=== PATIENT | female | born 1990 | race Caucasian/White ===

== ENCOUNTER → 2017-05-10 | Outpatient (CLI) | payer BC, OTHER ==
[2017-05-13 01:39] LABS: CHLAMYDIA TRACH RNA*** NOT DETECTED (NOT DETECTED); GC (NEIS GONORRHOEAE)RNA** NOT DETECTED (NOT DETECTED)
== END | disposition home or self-care (01) ==
LOC: C.LABSPEC 16:33
PROVIDERS: ATTEND Obstetrics & Gynecology
DX: Z01.419 Encounter for gynecological examination (general) (routine) without abnormal findings (principal)

== ENCOUNTER → 2018-03-20 | Outpatient (CLI) | payer OTHER | END | disposition home or self-care (01) | LOC: C.LABSPEC 11:20 | PROVIDERS: ATTEND Obstetrics & Gynecology | DX: N76.0 Acute vaginitis (principal) ==

== ENCOUNTER 2024-11-06 07:49 | Inpatient (IN) ==
[2024-11-06] MEDS ORDERED: OXYTOCIN 30 UNITS/NSS 30 UNITS/500 ML BAG IV PRN ×2 (08:07→23:51)
[2024-11-06] MEDS ORDERED: LIDOCAINE 1% LOCAL 20 ML VIAL INFIL PRN (08:07)
--- NOTE | 2024-11-06 08:44 | History & Physical Report ---
Date of Service November 06, 2024 Assessment & Plan (1) IUGR (intrauterine growth restriction) affecting care of mother: Plan: Shawna is a 33-year-old currently at 39 weeks 0 days gestational age presents for induction of labor for IUGR 1. Fetus: Category 1 tracing 2. Labor: Status post Rodriguez. Will start oxytocin per regular protocol. will rupture when appropriate 3. GBS negative 4. GDM diet controlled 5. Vitals within normal limit (2) Gestational diabetes mellitus (GDM) affecting , antepartum: (3) Encounter for supervision of normal intrauterine in primigravida, antepartum: (4) Encounter for induction of labor: Admission and Anticipated Discharge Date Admission Date: November 06, 2024 History of Present Illness Primary Care Provider: Mesha Wood DO Shawna is a 33-year-old Shawna is a 33-year-old G1, P0 currently at 39 weeks 0 days gestational age presents for induction of labor for IUGR. complicated by: GDM w/16wk glucola *Begin monthly Growth US's @24wks IUGR *Twice weekly NST/DVP@Dx *Weekly doppler@Dx *Growth US Q4wk @Dx *Deliver [id number] (unless abnml flow) IOL 11/06/24 wants to wait as long as testing is o. *Deliver 37wks (less than 3rd%) OB Labs: Blood Type O Positive 04/03/24 Antibody Screen NEGATIVE 04/03/24 Hgb 12.2 g/dl (12.0-16.0) 08/21/24 Hct 35.4 % (37.0-47.0) L 08/21/24 MCV 84.0 fL (80.0-100.0) 04/03/24 Plt Count 251 K/uL (130-400) 04/03/24 Rubella IgG Antibody Immune (Immune) 04/03/24 RPR Nonreactive (Nonreactive) 04/03/24 Treponema pallidum Ab Negative (Negative) 08/21/24 Hep Bs Antigen NON-REACTIVE (NON-REACTIVE) 04/03/24 Hepatitis C Ab (EIA) NON-REACTIVE (NON-REACTIVE) 04/03/24 HIV (1&2) Ag & Ab Conf NON-REACTIVE (NON-REACTIVE) 04/03/24 Glucose 1 Hr 50 gm 145 mg/dl (70-130) H 05/29/24 Maternal Serum AFP 30.3 ng/mL 05/29/24 OB Optional Labs: Chlamydia trachomatis RNA Not Detected (NotDetected) 04/03/24 Neisseria gonorrhoeae RNA Not Detected (NotDetected) 04/03/24 Alpha Fetoprotein Triple Screen SEE NOTE 05/29/24 Labs Reviewed: Horizon 14-negative--mln cfdna-low risk--mln msafp neg, smp Allergies Allergy/AdvReac Type Severity Reaction Status Date / Time Sulfa (Sulfonamide Allergy Severe Anaphylaxis Verified 11/06/24 08:57 Antibiotics) Home Medications Medication Instructions Recorded Confirmed Type cetirizine [Zyrtec] 1 tab PO DAILY 03/27/24 11/05/24 History doxylamine succinate [Unisom PO QPM 05/01/24 11/05/24 History (doxylamine)] acetone (urine) test (Ketone Urine #50 ea 06/18/24 11/05/24 Rx Test strips) blood sugar diagnostic (OneTouch #150 ea 06/18/24 11/05/24 Rx Verio test strips) blood-glucose meter (OneTouch #1 ea 06/18/24 11/05/24 Rx Verio Reflect Meter) lancets 33 gauge (OneTouch Delica #150 ea 06/18/24 11/05/24 Rx Plus Lancet) vitamin-ferrous sulfate 1 tab PO 11/06/24 History 27 mg iron-folic acid 0.8 mg tablet Patient History Medical History Varicella vaccination Pre-conception counseling Surgical History History of wisdom tooth extraction Family History Grandmother (Maternal) Diabetes Hypertension Mother Hypertension Grandmother (Paternal) Malignant neoplasm of urethra Father Hypertension Denies family history of Ovarian cancer Breast cancer Colorectal cancer Social History (Updated 03/27/24 @ 13:44 by Shawna Weinstein RN) Smoking Status: Never smoker Do You Dip or Chew Tobacco: No; Hx Alcohol Use: No Hx Substance Use: No Preferred Language: Norwegian Communication Ability: Effective Manifest/Order Organizer Print Orders Required: No Beliefs That Will Affect Care: None marital status: marital status details: Ang Brownlee [phone]) [phone] Current Living Situation: Spouse Current Living Situation Comment: Lives with current occupational status: employed current occupation: [employer] Other Information That Helps Us Care for You: No Feels Safe at Home: Yes Safety Concerns: Feels Safe At This Time Assistive Devices: None Physical Exam Genitourinary: Manual OB Exam: + cervical dilation 3 cm, + cervical effacement 80% and + station -2 OB Exam Monitor Tracing: + external FHT monitor used, + external uterine monitor used, + category I and + normal FHT variability Results & Data Vital Signs (Past 12 Hours) Vital Signs Temp Pulse Resp BP 11/06/24 08:03 20 11/06/24 08:03 36.6 C 20 11/06/24 08:00 108 H 139/76 11/06/24 07:59 96 H 134/90 Coding Level of Care Code None Diagnoses Poor growth affecting management of mother in third trimester, single or unspecified fetus O36.5930 Fetus number: single or unspecified fetus Trimester: third trimester Gestational diabetes mellitus (GDM) affecting , antepartum O24.419 Encounter for supervision of normal intrauterine in primigravida, antepartum Z34.00 Encounter for induction of labor Z34.90 (1) IUGR (intrauterine growth restriction) affecting care of mother Fetus number: single or unspecified fetus Trimester: third trimester Qualified Code(s): O36.5930 - Maternal care for other known or suspected poor growth, third trimester, not applicable or unspecified
[2024-11-06 09:03] LABS: Hematocrit (blood only) 38.3 % (37.0-47.0); Hemoglobin 13.4 g/dl (12.0-16.0); Mean Corpuscular Hemoglobin 29.7 pg (25.0-34.0); Mean Corpuscular Volume 84.9 fL (80.0-100.0); Mean Platelet Volume 10.6 fL (9.4-12.4); Platelet Count 162 K/uL (130-400); RDW Coefficient of Variation 13.4 % (11.5-14.5); RDW Standard Deviation 41.8 fL (36.4-46.3); Red Blood Count 4.51 M/uL (4.20-5.40); White Blood Count 11.67 K/ul (4.8-10.8)
[2024-11-06] MEDS: SODIUM CHLORIDE 0.9% 1,000 ML IV SCH (09:38)
[2024-11-06] MEDS: OXYTOCIN 30 UNITS/NSS 30 UNITS/500 ML BAG IV PRN (09:38)
[2024-11-06] MEDS ORDERED: SODIUM CHLORIDE 0.9% 500 ML IV SCH (09:45)
[2024-11-06] MEDS ORDERED: SODIUM CHLORIDE 0.9% 1,000 ML IV SCH (10:00)
[2024-11-06] MEDS ORDERED: ROPIVACAINE 0.5% PF 5 MG/ML 20 ML VIAL EPI PRN (14:05)
[2024-11-06] MEDS ORDERED: ePHEDrine sulfate 50 MG/ML AMP IV PRN (14:05)
[2024-11-06] MEDS ORDERED: BUPIVACAINE 0.25% PF 30 ML VIAL EPI PRN (14:05)
[2024-11-06] MEDS ORDERED: NALOXONE HCL 1 MG in SODIUM CHLORIDE 0.9% 1,000 ML IV PRN (14:05)
[2024-11-06] MEDS ORDERED: SODIUM CHLORIDE 0.9% PF INJ 10 ML VIAL EPI PRN (14:05)
[2024-11-06] MEDS ORDERED: diphenhydrAMINE 50 MG/ML VIAL IV PRN (14:05)
[2024-11-06] MEDS ORDERED: NALOXONE HCL 0.4 MG/1 ML VIAL/CARP IV PRN (14:05)
[2024-11-06] MEDS ORDERED: NALBUPHINE HCL INJ 10 MG/ML AMP IV PRN (14:05)
[2024-11-06] MEDS ORDERED: LIDOCAINE 2% MPF LOCAL 5 ML VIAL EPI PRN (14:05)
[2024-11-06] MEDS ORDERED: fentANYL 2 MCG/ML BUPIVacaine 0.125%-NSS 100ML BAG EPI PRN (14:05)
[2024-11-06] MEDS ORDERED: fentaNYL citrate PF 100 MCG/2 ML VIAL EPI PRN (14:05)
--- NOTE | 2024-11-06 14:05 | Anesthesiology Consultation ---
Date of Service November 06, 2024 Assessment & Plan Chart Review Chart Review: Acceptable Risk for Labor Epidural History Height/Weight Height: 5 ft 1 in Weight: 73.936 kg Allergies Allergy/AdvReac Type Severity Reaction Status Date / Time Sulfa (Sulfonamide Allergy Severe Anaphylaxis Verified 11/06/24 08:57 Antibiotics) Medications Home Medications Medication Instructions Recorded Confirmed Last Taken acetone (urine) test (Ketone Urine #50 ea 06/18/24 11/05/24 Unknown Test strips) blood sugar diagnostic (OneTouch #150 ea 06/18/24 11/05/24 Unknown Verio test strips) blood-glucose meter (OneTouch #1 ea 06/18/24 11/05/24 Unknown Verio Reflect Meter) lancets 33 gauge (OneTouch Delica #150 ea 06/18/24 11/05/24 Unknown Plus Lancet) cetirizine 10 mg tablet (Zyrtec) 10 mg PO DAILY 11/06/24 11/06/24 11/05/24 23:30 doxylamine succinate 25 mg tablet 25 mg PO HS 11/06/24 11/06/24 11/05/24 23:30 (Unisom (doxylamine)) vitamin-ferrous sulfate 1 tab PO DAILY 11/06/24 11/06/24 11/05/24 23:30 27 mg iron-folic acid 0.8 mg tablet Active Medications Generic Name Dose Route Start Last Admin Trade Name Freq PRN Reason Stop Dose Admin Oxytocin 30 units in 500 mls @ 12 mls/hr 11/06/24 08:07 11/06/24 13:00 Pitocin 30 Units/Nss IV 11/08/24 08:06 0.72 units/hr .Q24H PRN 12 mls/hr Labor Induction/Augmentation Titration Protocol 0.72 UNITS/HR Sodium Chloride 1,000 mls @ 50 mls/hr 11/06/24 11:00 11/06/24 09:38 Nss IV 11/07/24 10:59 50 mls/hr .Q20H BAKARI Administration Past Medical History Medical History Varicella vaccination Pre-conception counseling Past Family History Family History Grandmother (Maternal) Diabetes Hypertension Mother Hypertension Grandmother (Paternal) Malignant neoplasm of urethra Father Hypertension Denies family history of Ovarian cancer Breast cancer Colorectal cancer Past Surgical History Surgical History History of wisdom tooth extraction Social History Smoking Status: Never smoker Do You Dip or Chew Tobacco: No Hx Alcohol Use: No Hx Substance Use: No Physical Exam Vital Signs Last Vital Signs Temp 36.6 C 11/06/24 12:00 Pulse 90 11/06/24 13:38 Resp 22 11/06/24 12:00 BP 139/83 11/06/24 13:38 Testing Laboratory Results 11/06/24 08:16 11/06/24 08:48 POC Glucose 117 H
[2024-11-06] MEDS: fentANYL 2 MCG/ML BUPIVacaine 0.125%-NSS 100ML BAG ONE (14:41)
[2024-11-06] MEDS: LIDOCAINE 2%/EPINEPHRINE 1:200,000 20 ML PF ONE (14:41)
[2024-11-06] MEDS: SODIUM CHLORIDE 0.9% PF INJ 10 ML VIAL ONE (17:15)
[2024-11-06] MEDS: ePHEDrine sulfate 50 MG/ML AMP ONE (17:15)
[2024-11-06] MEDS: fentaNYL citrate PF 100 MCG/2 ML VIAL ONE (17:15)
[2024-11-06] MEDS: BUPIVACAINE 0.25% PF 30 ML VIAL ONE (17:16)
[2024-11-06] MEDS: BUPIVACAINE 0.25% PF 30 ML VIAL EPI STA (17:17)
[2024-11-06] MEDS: SODIUM CHLORIDE 0.9% PF INJ 10 ML VIAL EPI STA (17:18)
[2024-11-06] MEDS: LIDOCAINE 2%/EPINEPHRINE 1:200,000 20 ML PF EPI STA (17:18)
[2024-11-06] MEDS: fentaNYL citrate PF 100 MCG/2 ML VIAL EPI STA (17:18)
--- NOTE | 2024-11-06 21:37 | Labor Progress Brief Note ---
Date of Service November 06, 2024 Subjective Reason For Note: Routine Evaluation Assessment & Plan (1) IUGR (intrauterine growth restriction) affecting care of mother: Plan: Shawna is a 33-year-old currently at 39 weeks 0 days gestational age presents for induction of labor for IUGR 1. Fetus: Category 1 tracing 2. Labor: Status post Rodriguez. Continue oxytocin. Status post rupture around 4 PM 3. GBS negative 4. GDM diet controlled 5. Vitals within normal limit Fetus number: single or unspecified fetus Trimester: third trimester Qualified Code(s): O36.5930 - Maternal care for other known or suspected poor growth, third trimester, not applicable or unspecified (2) Gestational diabetes mellitus (GDM) affecting , antepartum: (3) Encounter for supervision of normal intrauterine in primigravida, antepartum: (4) Encounter for induction of labor: Admission and Anticipated Discharge Date Admission Date: November 06, 2024 Physical Exam 2 Genitourinary: Manual OB Exam: + cervical dilation (4.5), + cervical effacement 80%, + station -2 and + amniotic fluid clear OB Exam Monitor Tracing: + external FHT monitor used, + external uterine monitor used, + category I and + normal FHT variability Results & Data Vital Signs (Past 12 Hours) Vital Signs Temp Pulse Resp BP Pulse Ox 11/06/24 21:29 103 H 99 11/06/24 21:24 113 H 99 11/06/24 21:22 108 H 126/71 11/06/24 21:19 99 H 99 11/06/24 21:14 100 H 99 11/06/24 21:09 97 H 98 11/06/24 21:08 96 H 121/67 11/06/24 21:04 95 H 99 11/06/24 21:00 16 11/06/24 21:00 36.8 C 16 11/06/24 20:59 97 H 99 11/06/24 20:54 95 H 99 11/06/24 20:53 89 109/64 11/06/24 20:49 91 H 98 11/06/24 20:44 91 H 98 11/06/24 20:39 83 98 11/06/24 20:38 85 102/62 11/06/24 20:34 84 97 11/06/24 20:29 80 97 12/10/24 20:24 84 97 11/06/24 20:23 78 104/62 11/06/24 20:19 80 99 11/06/24 20:14 87 98 11/06/24 20:09 92 H 97 11/06/24 20:04 86 97 11/06/24 20:00 16 11/06/24 20:00 16 11/06/24 19:59 85 97 11/06/24 19:54 89 97 11/06/24 19:53 80 128/69 11/06/24 19:49 86 98 11/06/24 19:44 91 H 98 11/06/24 19:39 123 H 98 11/06/24 19:37 91 H 112/59 L 11/06/24 19:34 92 H 98 11/06/24 19:29 93 H 97 11/06/24 19:24 95 H 97 11/06/24 19:23 93 H 107/59 L 11/06/24 19:19 95 H 98 11/06/24 19:14 93 H 97 11/06/24 19:09 94 H 98 11/06/24 19:07 93 H 112/64 11/06/24 19:04 94 H 98 11/06/24 19:00 16 11/06/24 19:00 36.8 C 16 11/06/24 18:59 92 H 98 11/06/24 18:54 98 H 98 11/06/24 18:52 96 H 110/62 11/06/24 18:49 95 H 98 11/06/24 18:44 101 H 98 11/06/24 18:39 99 H 98 11/06/24 18:37 96 H 107/61 11/06/24 18:34 102 H 98 11/06/24 18:29 112 H 96 11/06/24 18:27 16 11/06/24 18:27 16 11/06/24 18:24 82 97 11/06/24 18:23 83 120/68 11/06/24 18:19 82 98 11/06/24 18:14 83 98 11/06/24 18:09 87 98 11/06/24 18:07 82 116/66 11/06/24 18:04 80 98 11/06/24 17:59 80 98 11/06/24 17:54 83 99 11/06/24 17:53 86 116/67 11/06/24 17:49 82 99 11/06/24 17:44 96 11/06/24 17:44 93 H 11/06/24 17:44 87 93 11/06/24 17:39 97 11/06/24 17:39 98 H 11/06/24 17:39 79 112/65 11/06/24 17:34 78 98 11/06/24 17:30 84 93 11/06/24 17:29 80 97 11/06/24 17:28 37 C 20 11/06/24 17:24 85 99 11/06/24 17:23 85 116/70 11/06/24 17:19 78 98 11/06/24 17:14 82 98 11/06/24 17:09 98 11/06/24 17:09 82 11/06/24 17:09 81 116/65 11/06/24 17:08 20 11/06/24 17:08 20 11/06/24 17:04 91 H 97 11/06/24 16:59 115 H 98 11/06/24 16:54 96 H 96 11/06/24 16:53 88 99/56 L 11/06/24 16:49 84 96 11/06/24 16:44 96 H 98 11/06/24 16:43 109 H 94 11/06/24 16:39 102 H 96 11/06/24 16:37 88 105/57 L 11/06/24 16:34 96 H 96 11/06/24 16:29 92 H 98 11/06/24 16:24 89 97 11/06/24 16:22 95 H 108/61 11/06/24 16:19 98 H 96 11/06/24 16:14 104 H 99 11/06/24 16:09 92 H 99 11/06/24 16:08 36.6 C 18 11/06/24 16:07 82 118/61 11/06/24 16:04 95 H 98 11/06/24 15:59 131 H 99 11/06/24 15:54 99 H 98 11/06/24 15:53 100 H 119/61 11/06/24 15:49 95 H 98 11/06/24 15:44 99 H 99 11/06/24 15:39 92 H 99 11/06/24 15:38 96 H 137/64 11/06/24 15:35 20 11/06/24 15:35 20 11/06/24 15:34 101 H 98 11/06/24 15:29 88 98 11/06/24 15:24 88 99 11/06/24 15:23 88 124/60 11/06/24 15:20 18 11/06/24 15:20 18 11/06/24 15:19 100 H 98 11/06/24 15:14 102 H 99 11/06/24 15:09 117 H 98 11/06/24 15:08 97 H 134/65 11/06/24 15:05 18 11/06/24 15:05 18 11/06/24 15:04 109 H 99 11/06/24 15:02 100 H 139/68 11/06/24 14:59 112 H 20 99 11/06/24 14:58 104 H 160/69 H 11/06/24 14:55 16 11/06/24 14:55 16 11/06/24 14:54 105 H 99 11/06/24 14:52 114 H 140/65 11/06/24 14:50 114 H 20 149/67 H 11/06/24 14:49 109 H 98 11/06/24 14:48 98 H 139/65 11/06/24 14:45 18 11/06/24 14:45 18 11/06/24 14:44 99 11/06/24 14:44 108 H 11/06/24 14:44 100 H 132/59 L 11/06/24 14:43 16 11/06/24 14:43 16 11/06/24 14:43 18 11/06/24 14:43 18 11/06/24 14:42 96 H 133/73 11/06/24 14:41 18 11/06/24 14:41 18 11/06/24 14:40 100 H 139/81 11/06/24 14:39 93 H 99 11/06/24 14:36 105 H 93 11/06/24 14:35 103 H 141/86 H 11/06/24 14:34 106 H 100 11/06/24 14:29 124 H 98 11/06/24 14:24 94 H 99 11/06/24 14:19 102 H 100 11/06/24 13:38 90 139/83 11/06/24 12:35 85 120/78 11/06/24 12:00 22 11/06/24 12:00 36.6 C 22 11/06/24 11:37 87 121/74 11/06/24 10:48 82 122/77 11/06/24 09:42 92 H 121/74 Coding Diagnoses Poor growth affecting management of mother in third trimester, single or unspecified fetus O36.5930 Fetus number: single or unspecified fetus Trimester: third trimester Gestational diabetes mellitus (GDM) affecting , antepartum O24.419 Encounter for supervision of normal intrauterine in primigravida, antepartum Z34.00 Encounter for induction of labor Z34.90
--- NOTE | 2024-11-06 23:38 | Anesthesia Procedure Note ---
Date of Service November 06, 2024 Anesthesia Post Epidural Note Vital Signs Vital Signs: Temp Pulse Resp BP Pulse Ox 36.8 C 103 H 16 116/64 97 11/06/24 21:00 11/06/24 23:29 11/06/24 22:30 11/06/24 23:23 11/06/24 23:29 Pain Intensity Bilateral Abdomen: Pain Intensity: 0 Lower Back: Pain Intensity: 0 Notes Mental Status: alert / awake / arousable and participated in evaluation Nausea / Vomiting: adequately controlled Pain: adequately controlled Airway Patency, RR, SpO2: stable & adequate BP & HR: stable & adequate Hydration State: stable & adequate Neuraxial Anesthesia: was administered and sensory block is resolving Anesthetic Complications: no major complications apparent and Pt Satisfied with anesthetic care Epidural: Removed without complications and With tip intact
[2024-11-06] MEDS ORDERED: HYDROCORTISONE ACETATE 25 MG SUPP PR PRN (23:51)
[2024-11-06] MEDS ORDERED: ACETAMINOPHEN 325 MG TAB PO PRN (23:51)
[2024-11-06] MEDS ORDERED: bisacodyL 10 MG SUPP PR PRN (23:51)
--- NOTE | 2024-11-06 23:54 | Delivery Summary ---
Vaginal Delivery Summary Date of Service November 06, 2024 Vaginal Delivery Summary and 1st Degree LAC Progressed to 10 cm dilated, 100% effaced, +2-3 station and pushed over intact perineum with epidural anesthesia and delivered a viable male with weight pending and Apgars of 8 and 9 at 1 and 5 minutes respectively. Had the delivered without difficulty quickly followed by shoulders and body. was noted be vigorous upon delivery and a 1 minute delayed cord clamping was initiated. Cord was then double clamped and cut remained on maternal abdomen. Cord blood obtained. Attention was turned delivery of placenta was delivered intact three-vessel cord gentle cord traction. Inspection of perineum vagina cervix there is noted to be a small first-degree perineal laceration which repaired with 3-0 Vicryl continuous running stitch. Both mother and in stable condition in the immediate post delivery timeframe. Needle sponge and instrument counts are correct at the completion of the case. QBL of 51 mL and no complications noted [facility] Vaginal Delivery Charge Delivery Type Details: and 1st Degree LAC
[2024-11-07] MEDS: DIPHTHER/TETAN/PERTUS Vaccine (Tdap, Adol/Adult) 0.5mL IM ONE (00:30)
[2024-11-07] MEDS: IBUPROFEN 600 MG TAB PO PRN (01:00)
[2024-11-07] MEDS: ONDANSETRON INJ 2 MG/ML 2 ML VIAL IV ONE (01:31)
[2024-11-07] MEDS: SODIUM CHLORIDE 0.9% 1,000 ML IV SCH (03:27)
[2024-11-07] MEDS: BENZOCAINE 20% SPRY 85 APPLN/85 GM CAN EXT PRN (06:05)
--- NOTE | 2024-11-07 08:11 | Obstetrical Progress Note ---
Date of Service November 07, 2024 Assessment & Plan (1) Encounter for care and examination after delivery: Day 1 status post vaginal delivery. Doing well today. Routine care Subjective Ambulation: ambulating normally Voiding: no voiding problems Passing Gas:: Yes Diet Tolerance:: regular diet Lochia:: Moderate Feeding Type:: breast feeding Physical Exam Constitutional WD/WN, vitals as above Respiratory normal respiratory effort; no respiratory distress and no labored breathing Cardiovascular Extremities: no calf tenderness Gastrointestinal (Abdomen) Inspection/Auscultation: abdomen normal to inspection; abdomen not distended Percussion/Palpation: abdomen soft; abdomen nontender, no guarding and abdomen not rigid Genitourinary OB Exam Abdomen: + fundal height Fundus: + firm and + relation to umbilicus (Below); not tender or not boggy Results & Data Vital Signs (Past 12 Hours) Vital Signs Temp Pulse Pulse Resp BP BP Pulse Ox 11/07/24 03:00 37.4 C 81 18 133/96 97 11/07/24 01:22 103 H 145/73 H 11/07/24 01:07 99 H 132/67 11/07/24 00:53 88 125/66 11/07/24 00:38 92 H 119/64 11/07/24 00:23 95 H 125/67 11/07/24 00:08 96 H 129/68 11/06/24 23:53 96 H 132/70 11/06/24 23:29 103 H 97 11/06/24 23:27 102 H 94 11/06/24 23:24 105 H 97 11/06/24 23:23 115 H 116/64 11/06/24 23:20 37.5 C 16 11/06/24 23:19 107 H 98 11/06/24 23:14 113 H 95 11/06/24 23:09 112 H 96 11/06/24 23:08 16 11/06/24 23:08 16 11/06/24 23:07 137 H 94 11/06/24 23:04 124 H 94 11/06/24 23:00 139 H 16 94 11/06/24 22:59 130 H 94 11/06/24 22:54 140 H 96 11/06/24 22:52 137 H 92/55 L 11/06/24 22:49 147 H 98 11/06/24 22:47 129 H 90 11/06/24 22:44 133 H 97 11/06/24 22:39 121 H 96 11/06/24 22:38 127 H 101/58 L 11/06/24 22:36 124 H 90 11/06/24 22:34 141 H 100 11/06/24 22:30 16 11/06/24 22:30 16 11/06/24 22:29 132 H 96 11/06/24 22:24 105 H 100 11/06/24 22:22 111 H 111/56 L 11/06/24 22:19 125 H 100 11/06/24 22:14 149 H 99 11/06/24 22:09 111 H 100 11/06/24 22:08 106 H 121/60 11/06/24 22:04 109 H 99 11/06/24 21:59 105 H 99 11/06/24 21:54 109 H 121/65 99 11/06/24 21:49 105 H 99 11/06/24 21:44 105 H 99 11/06/24 21:39 108 H 99 11/06/24 21:38 107 H 128/63 11/06/24 21:34 109 H 99 11/06/24 21:29 103 H 99 11/06/24 21:24 113 H 99 11/06/24 21:22 108 H 126/71 11/06/24 21:19 99 H 99 11/06/24 21:14 100 H 99 11/06/24 21:09 97 H 98 11/06/24 21:08 96 H 121/67 11/06/24 21:04 95 H 99 11/06/24 21:00 16 11/06/24 21:00 36.8 C 16 11/06/24 20:59 97 H 99 11/06/24 20:54 95 H 99 11/06/24 20:53 89 109/64 11/06/24 20:49 91 H 98 11/06/24 20:44 91 H 98 11/06/24 20:39 83 98 11/06/24 20:38 85 102/62 11/06/24 20:34 84 97 11/06/24 20:29 80 97 11/06/24 20:24 84 97 11/06/24 20:23 78 104/62 11/06/24 20:19 80 99 11/06/24 20:14 87 98 O2 Del Method 11/07/24 03:00 Room Air 11/07/24 01:22 11/07/24 01:07 11/07/24 00:53 11/07/24 00:38 11/07/24 00:23 11/07/24 00:08 11/06/24 23:53 11/06/24 23:29 11/06/24 23:27 11/06/24 23:24 11/06/24 23:23 11/06/24 23:20 11/06/24 23:19 11/06/24 23:14 11/06/24 23:09 11/06/24 23:08 11/06/24 23:08 11/06/24 23:07 11/06/24 23:04 11/06/24 23:00 11/06/24 22:59 11/06/24 22:54 11/06/24 22:52 11/06/24 22:49 11/06/24 22:47 11/06/24 22:44 11/06/24 22:39 11/06/24 22:38 11/06/24 22:36 11/06/24 22:34 11/06/24 22:30 11/06/24 22:30 11/06/24 22:29 11/06/24 22:24 11/06/24 22:22 11/06/24 22:19 11/06/24 22:14 11/06/24 22:09 11/06/24 22:08 11/06/24 22:04 11/06/24 21:59 11/06/24 21:54 11/06/24 21:49 11/06/24 21:44 11/06/24 21:39 11/06/24 21:38 11/06/24 21:34 11/06/24 21:29 11/06/24 21:24 11/06/24 21:22 11/06/24 21:19 11/06/24 21:14 11/06/24 21:09 11/06/24 21:08 11/06/24 21:04 11/06/24 21:00 11/06/24 21:00 11/06/24 20:59 11/06/24 20:54 11/06/24 20:53 11/06/24 20:49 11/06/24 20:44 11/06/24 20:39 11/06/24 20:38 11/06/24 20:34 11/06/24 20:29 11/06/24 20:24 11/06/24 20:23 11/06/24 20:19 11/06/24 20:14
[2024-11-07] MEDS: DOCUSATE SODIUM 100 MG CAP PO SCH (08:52)
[2024-11-07] MEDS: FERROUS SULFATE 325 MG TAB PO SCH (08:52)
[2024-11-07] MEDS: PRENATAL VITAMIN 1 TAB PO SCH (08:52)
[2024-11-07 19:47] VITALS: O2SAT 98
[2024-11-07] MEDS: bisacodyL 5 MG TABEC PO SCH (21:28)
--- NOTE | 2024-11-08 06:46 | Obstetrical Progress Note ---
Date of Service November 08, 2024 Assessment & Plan (1) Encounter for care and examination after delivery: Plan Doing well. Meeting goals. Plan d/c. Instructions given. Day #:: 2 Subjective Ambulation: ambulating normally Voiding: no voiding problems Passing Gas:: Yes Diet Tolerance:: nausea/vomiting Lochia:: Small Feeding Type:: breast feeding Feeling well. Ready for d/c. Physical Exam Constitutional WD/WN, vitals as above Cardiovascular Extremities: + edema (tr); no calf tenderness Gastrointestinal (Abdomen) soft, nt, nd, ff/nt 1 below u Psychiatric A+Ox3, euthymic affect Results & Data Vital Signs (Past 12 Hours) Vital Signs Temp Pulse Resp BP Pulse Ox O2 Del Method 11/07/24 23:40 36.6 C 78 16 129/73 98 Room Air 11/07/24 19:30 36.7 C 78 16 121/78 98 Room Air
[2024-11-08 09:13] VITALS: PULSE 74; RESP 18; TEMP 98.1
[2024-11-08 10:22] VITALS: BP 129/73
== END 2024-11-08 11:50 | disposition home or self-care (01) | DRG 807 ==
LOC: 4S1 07:49 → 4E2 11-07 02:13